=== PATIENT | female | born 1995 | race African-American/Black ===

== ENCOUNTER 2017-08-21 14:23 | Emergency (ER) | payer SELFPAY ==
[2017-08-21] MEDS ORDERED: PNV1TABL76 MT (15:50)
== END 2017-08-21 16:39 | disposition left against medical advice (07) ==
LOC: ER 14:23
DX: Z53.21 Procedure and treatment not carried out due to patient leaving prior to being seen by health care provider (principal)

== ENCOUNTER 2017-08-21 14:59 | Observation (INO) | payer OTHER ==
[~2017-08-21] VITALS: Ht 160 cm; Wt 113.4 kg
[2017-08-21] MEDS ORDERED: PNV1TABL76 MT (15:50)
== END 2017-08-21 16:15 | disposition home or self-care (01) ==
LOC: L&D 14:59
PROVIDERS: ADMIT Obstetrics & Gynecology; ATTEND Obstetrics & Gynecology
DX: O26.892 Other specified pregnancy related conditions, second trimester (principal); R10.11 Right upper quadrant pain; O21.2 Late vomiting of pregnancy; Z3A.25 25 weeks gestation of pregnancy
CPT/HCPCS: G0378